=== PATIENT | male | born 1965 | race Caucasian/White ===

== ENCOUNTER → 2023-04-19 | Outpatient (CLI) | payer OTHER, SELFPAY ==
--- NOTE | 2023-04-19 15:10 | NEURO ---
NCS and/or EMG Patient Report Ordering Doctor: Srinivas Olivas DATE OF SERVICE: 04/19/23 Terry presents for electrodiagnostic testing of the upper limbs. He reports numbness and tingling in the hands, worse on the right side. Electrodiagnostic findings: Right median motor nerve demonstrates prolonged distal latency with normal amplitude. Proximal response could not be obtained. Left median motor nerve demonstrates prolonged distal latency with normal amplitude and conduction velocity. Normal ulnar motor response bilaterally. Prolonged left median F-wave. Some median sensory responses at the wrist and palm. Normal ulnar and radial sensory responses. Needle EMG testing was performed in the upper limbs. Motor unit action potentials were of normal amplitude and duration without polyphasic activity. No acute denervation was noted. Electrodiagnostic impression: This is an abnormal study in the upper limbs 1. Electrodiagnostic findings demonstrate bilateral median mononeuropathy. This is consistent with a moderate to advanced right carpal tunnel syndrome and a moderate left carpal tunnel syndrome 2. No electrodiagnostic evidence is noted for ulnar neuropathy, including cubital tunnel syndrome. 3. No electrodiagnostic evidence is noted for cervical radiculopathy.
== END | disposition home or self-care (01) ==
PROVIDERS: PCP Family Medicine; Referring Provider Family Medicine; Visit Provider Family Medicine
DX: G56.00 Carpal tunnel syndrome, unspecified upper limb (principal); G56.03 Carpal tunnel syndrome, bilateral upper limbs
CPT/HCPCS: 95886; 95913

== ENCOUNTER 2023-07-24 08:32 | Day surgery (SDC) | payer OTHER, SELFPAY ==
--- NOTE | 2023-07-06 09:05 | EKG12_ITS ---
Test Reason : PRE-OP Blood Pressure : / mmHG Vent. Rate : 080 BPM Atrial Rate : 080 BPM P-R Int : 186 ms QRS Dur : 088 ms QT Int : 380 ms P-R-T Axes : 020 -06 007 degrees QTc Int : 438 ms Normal sinus rhythm Normal ECG No previous ECGs available Confirmed by ALONDRA BALDWIN, DANICA ([id number]), acquisitions editor ISAIAS ARCE ([id number]) on 07/07/2023 7:03:08 AM Referred By: Lavell Hernandez Confirmed By:IWONA CANTU MD
[2023-07-06 09:45] LABS: Hematocrit 48.9 % (40-54); Hemoglobin 15.7 g/dL (13.0-16.5); Mean Corp Hgb Conc 32.1 g/dL (32-36); Mean Corpuscular Hgb 28.5 pg (27.0-32.0); Mean Corpuscular Volume 88.7 fL (80-94); Platelet Count 358 K/mm3 (150-450); RBC Distribution Width CV 12.5 % (11.6-14.6); RBC Distribution Width SD 41.1 fl (35.1-43.9); Red Blood Count 5.51 M/mm3 (4.6-6.2); White Blood Count 6.8 K/mm3 (4.4-11.0)
[2023-07-06 10:35] LABS: Anion Gap 5 (5-15); BUN 16 mg/dL (7-18); BUN/Creat Ratio 13.9 RATIO (10-20); Calcium,Total 9.3 mg/dL (8.5-10.1); Chloride 108 mmol/L (98-107); Creatinine, Serum 1.15 mg/dL (0.70-1.30); EST Glomerular Filtration Rate 69 mL/min (>60); Est Glom Filt Rate - Afr Amer 84 mL/min (>60); Glucose 108 mg/dL (74-106); Potassium 4.4 mmol/L (3.5-5.1); Sodium Level 139 mmol/L (136-145)
[2023-07-24] MEDS: Lactated Ringers 1,000 ML 15 ML IV (09:20)
[2023-07-24 09:21] VITALS: BP 126/95; PULSE 82; RESP 18; TEMP 36.6; O2SAT 97; BMI 40.6
--- NOTE | 2023-07-24 10:47 | OP.PCM_ITS ---
Report of Operation Date of Procedure: 07/24/23 Pre-Operative Diagnosis: Right Carpal Tunnel Syndrome Post-Operative Diagnosis: same Surgery/Procedure Performed:: Right Carpal Tunnel Release Description of Surgical Findings:: Report of Operation Date of Procedure: Preoperative Diagnosis: Right Carpal Tunnel Syndrome Postoperative Diagnosis: same Procedure Performed: Right Carpal Tunnel Release Anesthesia: [place] Sierra Anesthesiologist: Bob Alonso M.D. Description of Procedure: With appropriate informed consent, the patient was taken to the operative suite. After the induction of [place] block, the right upper extremity was prepared and draped sterilely. Subsequently, a midline longitudinal incision was made in the base of the right palm, in line with the fourth ray with #15 blade scalpel. Hemostasis was perfected with bipolar electrocautery. Scissor dissection was carried down through the subcutaneous tissue to the palmar fascia. A self-retaining retractor was placed. In sequence, the garland fascia, then the deep transverse carpal ligament was divided with the scalpel under direct visualization. Thereafter, the most proximal and distal aspects of the deep transverse carpal ligament were divided with scissors under direct visualization. The wound was copiously irrigated and closed with interrupted sutures of 4-0 nylon. A sterile well-padded dressing and Vaibhav wrap were applied. The tourniquet was released. Excellent blood flow was returned to the right upper extremity. The patient was transferred to the PACU in stable and satisfactory condition. Lavell Hernandez DO Surgeon: Lavell Hernandez kick press setter: None Type of Anesthesia: [place] Sierra Anesthesiologist: Bob Alonso Admpedro VTE Documentation VTE Present on Admission: No VTE Mechan Device Prophylaxis: SCD's VTE Pharm Prophylaxis ordered?: No Reason prophylaxis not ordered:: Procedure Not Indicated
[2023-07-24 10:57] VITALS: BP 126/95; BP 97/66; PULSE 80; RESP 16; TEMP 36.7; O2SAT 92
[2023-07-24 11:05] VITALS: BP 110/72; BP 126/95; PULSE 75; RESP 16; O2SAT 93
[2023-07-24 11:10] VITALS: BP 119/75; BP 126/95; PULSE 76; RESP 16; O2SAT 93
[2023-07-24 11:15] VITALS: BP 120/87; BP 126/95; PULSE 83; RESP 16; TEMP 36.5; O2SAT 95
[2023-07-24 11:49] VITALS: BP 126/95
== END 2023-07-24 11:52 | disposition home or self-care (01) ==
LOC: SDC 08:32 → AC 08:33
PROVIDERS: Physician Assistant; PCP Family Medicine; Referring Provider Orthopaedic Surgery; Visit Provider Orthopaedic Surgery
PROC: (CPT 64721; principal; 2023-07-24 09:45)
DX: G56.01 Carpal tunnel syndrome, right upper limb (principal); E66.01 Morbid (severe) obesity due to excess calories; Z68.41 Body mass index [BMI] 40.0-44.9, adult; Z79.899 Other long term (current) drug therapy; E78.00 Pure hypercholesterolemia, unspecified; I10 Essential (primary) hypertension
CPT/HCPCS: 64721; 36415; 80048; 85027; 93005; J7120; J2405